=== PATIENT | female | born 1990 | race American Indian/Alaskan Native ===

== ENCOUNTER 2016-12-12 17:29 | Emergency (ER) | payer BC, OTHER ==
[2016-12-12 17:36] VITALS: RESP 18; O2SAT 99
--- NOTE | 2016-12-12 19:26 | C.PDOC ---
History Of Present Illness The patient, a 26 y/o female, presents to the ED for evaluation of lower back pain which began around 2 days ago. Patient states she accidentally tripped and fell backwards prior to the onset of her pain. Afterwards, patient was evaluated at [facility], where they gave her a "shot" and discharged her home. Patient did not undergo X-ray imaging during her visit. Patient notes she is still in pain, so she reports to the ED for further evaluation. Otherwise, she denies head injury, LOC, urinary/bowel incontinence, upper/lower extremity numbness/weakness. Time Seen by Provider: 12/12/16 17:46 Chief Complaint (Nursing): Back Pain History Per: Patient History/Exam Limitations: no limitations Onset/Duration Of Symptoms: Days Current Symptoms Are (Timing): Still Present Quality Of Discomfort: "Pain" Previous Symptoms: Back Pain Associated Symptoms: denies: Incontinence, New Weakness, New Numbness Additional History Per: Patient Past Medical History Reviewed: Historical Data, Nursing Documentation, Vital Signs Vital Signs: Last Vital Signs Temp 98.2 F 12/12/16 19:42 Pulse 78 12/12/16 19:42 Resp 18 12/12/16 19:42 BP 116/70 12/12/16 19:42 Pulse Ox 99 12/12/16 21:31 - Medical History PMH: No Chronic Diseases Surgical History: No Surg Hx Family History: States: Unknown Family Hx - Social History Hx Alcohol Use: Yes Hx Substance Use: No Review Of Systems Except As Marked, All Systems Reviewed And Found Negative. Genitourinary: Negative for: Incontinence Musculoskeletal: Positive for: Back Pain (lower) Neurological: Negative for: Weakness, Numbness, Other (head injury/LOC ) Physical Exam - Physical Exam Appears: Non-toxic, No Acute Distress Skin: Normal Color, Warm, Dry Head: Atraumatic, Normacephalic Eye(s): bilateral: Normal Inspection Oral Mucosa: Moist Neck: Normal ROM, Supple Chest: Symmetrical, No Deformity, No Tenderness Back: Paraspinal Tenderness (midline ) Extremity: Normal ROM, No Tenderness, No Calf Tenderness, Capillary Refill ( less than 2 seconds ), No Deformity, No Swelling Neurological/Psych: Oriented x3, Normal Speech, Normal Cognition Gait: Steady ED Course And Treatment O2 Sat by Pulse Oximetry: 99 (on RA) Pulse Ox Interpretation: Normal - Other Rad LS spine X-Ray: Interpreted by Me Interpretation: No fx, no lesions Progress Note: LS Spine AP/LAT XR ordered, results are unremarkable. On reassessment, patient is resting comfortably and is in no apparent distress. Patient is ambulatory in the ED without distress and is stable for discharge. Patient is advised to follow up with her PMD within 1-2 days for further evaluaiton. Disposition - Disposition Referrals: Linda Horner MD [Family Provider] - Disposition: HOME/ ROUTINE Disposition Time: 19:26 Condition: STABLE Additional Instructions: Follow up with PMD within 1-2 days. Return to ED if feel worse. Prescriptions: Cyclobenzaprine [Cyclobenzaprine HCl] 10 mg PO TID #15 tab Lidocaine 5% [Lidoderm] 1 patch TP DAILY #30 patch Naproxen [Naprosyn] 1 tab PO BID PRN #25 tab PRN Reason: Pain Instructions: Acute Low Back Pain (ED) Forms: Work Excuse - Clinical Impression Clinical Impression: Low back strain - PA / AGENT / Resident Statement MD/DO has reviewed & agrees with the documentation as recorded. - Scribe Statement The provider has reviewed the documentation as recorded by the Scribe (Vicki Riojas) All medical record entries made by the Scribe were at my direction and personally dictated by me. I have reviewed the chart and agree that the record accurately reflects my personal performance of the history, physical exam, medical decision making, and the department course for this patient. I have also personally directed, reviewed, and agree with the discharge instructions and disposition.
[2016-12-12 19:43] VITALS: BP 116/70; PULSE 78; TEMP 98.2
--- NOTE | 2016-12-13 10:30 | RAD ---
PROCEDURE: Radiographs of the Lumbar Spine. HISTORY: fall, low back pain COMPARISON: No prior. FINDINGS: BONES: Mild scoliosis. No acute abnormalities. Bowel gas overlies transverse process ease of several vertebral bodies. This is relevant with particular attention to the right transverse process the L2 vertebral body. A fracture is suspected based on location of clinical signs and symptoms/ presentation followup advised. CT scan would clarify this again only if clinically suspected transverse fracture. DISC SPACES: Unremarkable. OTHER FINDINGS: None. IMPRESSION: Unremarkable Probably no acute findings. Please see report for additional details regarding the transverse process right side L2 vertebral complex. Radiographs of the lumbar spine.
== END 2016-12-12 19:43 | disposition home or self-care (01) ==
LOC: C.ER 17:29
DX: S39.012A Strain of muscle, fascia and tendon of lower back, initial encounter (principal); W01.0XXA Fall on same level from slipping, tripping and stumbling without subsequent striking against object, initial encounter; Y93.89 Activity, other specified; Y92.89 Other specified places as the place of occurrence of the external cause